=== PATIENT | female | born 2000 | race African-American/Black ===

== ENCOUNTER 2022-11-05 14:33 | Outpatient (REF) | payer MEDICAID, SELFPAY ==
[2022-11-07 16:23] LABS: Keppra (Levetiracetam) 23 ug/mL (10-40)
== END 2022-11-05 14:34 | disposition home or self-care (01) ==
LOC: NPINS 14:33
PROVIDERS: PCP Physician Assistant Medical; Visit Provider Nurse Practitioner
DX: R56.9 Unspecified convulsions (principal)
CPT/HCPCS: 80177

== ENCOUNTER 2024-02-04 22:00 | Outpatient (REF) | payer MEDICAID, SELFPAY | END 2024-02-04 22:01 | disposition home or self-care (01) | LOC: NPINS 22:00 | PROVIDERS: PCP Physician Assistant Medical; Visit Provider Psychiatry & Neurology Neurology | DX: G40.909 Epilepsy, unspecified, not intractable, without status epilepticus (principal) | CPT/HCPCS: 80177 ==

== ENCOUNTER 2025-01-13 07:31 | Outpatient (CLI) | payer MEDICAID, SELFPAY ==
[2025-01-14 15:51] LABS: Keppra (Levetiracetam) 21 ug/mL (10-40)
== END 2025-01-13 07:32 | disposition home or self-care (01) ==
LOC: NPINS 07:32
PROVIDERS: PCP Physician Assistant Medical; Visit Provider Psychiatry & Neurology Neurology
DX: R56.9 Unspecified convulsions (principal); Z79.899 Other long term (current) drug therapy
CPT/HCPCS: 80177